=== PATIENT | female | born 2000 | race African-American/Black ===

== ENCOUNTER 2021-04-14 07:33 | Emergency (ER) | payer OTHER ==
[~2021-04-14] VITALS: Ht 162.6 cm; Wt 61.2 kg
[2021-04-14 08:16] LABS: ABSOLUTE NEUTROPHILS 4.5 thou/uL (1.4-8.2); BASOPHILS 0.3 % (0.0-2.0); EOSINOPHILS 3.8 % (0.0-3.0); HEMATOCRIT 46.7 % (37.0-47.0); HEMOGLOBIN 16.3 gm/dL (12.0-15.0); LYMPHOCYTES 28.4 % (24.0-44.0); MCH 31.7 pg (26.0-34.0); MCV 90.5 fL (80.0-100.0); MONOCYTES 12.5 % (1.0-8.0); PLATELET COUNT 163 thou/uL (150-400); RBC 5.16 mil/uL (4.20-5.00); RDW 12.4 % (10.5-14.5); WBC 8.2 thou/uL (4.0-11.0)
[2021-04-14 08:19] LABS: CALCIUM 9.3 mg/dL (8.5-10.1); POTASSIUM 4.1 mmol/L (3.5-5.1)
[2021-04-14] MEDS ORDERED: PREDNISONE 10 M10 MG PO (08:45)
[2021-04-14] MEDS ORDERED: PROAIR HFA8.5 GM INH (08:45)
[2021-04-14 09:03] VITALS: BP 142/64
--- NOTE | 2021-04-14 09:45 | EKG ---
[address] [address] [place] [address] ELECTROCARDIOGRAM REPORT Name: KENAN GAMBLE [facility] [id number] Admission: 04/14/21 Attend Phys: Discharge: Date of : 89 Report #: [id number] [facility] ED Test Date: 2021-04-14 Test Time: 07:50:19 Pat Name: KENAN GAMBLE Department: Room: Gender: F Obstetrics Gynecology Physician: NILDA : 2000 Requested By: Mundo Mack Order Number: [id number] MD: Ramirez Chaudhry Measurements Intervals [place] Rate: 81 P: 75 OK: 127 QRS: 69 QRSD: 100 T: 62 QT: 377 QTc: 438 Interpretive Statements Sinus rhythm Tall T waves, probably normal variant Baseline wander in lead(s) V1 No previous ECG available for comparison Electronically Signed On 04-14-2021 9:45:18 SCREENING REPRESENTATIVE by Ramirez Chaudhry [email or web address] <ELECTRONICALLY SIGNED> By: Ramirez Chaudhry MD, [facility] 04/14/21 0945 0750 0750 Ramirez Chaudhry MD, FAC /EPI
== END 2021-04-14 09:02 | disposition home or self-care (01) ==
LOC: ER 07:33
PROVIDERS: Student in an Organized Health Care Education/Training Program
DX: J06.9 Acute upper respiratory infection, unspecified (principal); R06.2 Wheezing; J45.909 Unspecified asthma, uncomplicated